=== PATIENT | male | born 1990 | race Caucasian/White ===

== ENCOUNTER 2024-12-26 20:42 | Emergency (ER) | payer OTHER, SELFPAY ==
--- NOTE | ~2024-12-26 | XR_ITS ---
EXAMINATION: XR chest 2V DATE: 12/26/2024 21:15 INDICATION: Left-sided chest pain and shortness of breath TECHNIQUE: PA and lateral views of the chest were obtained. COMPARISON: Chest radiograph dated 08/04/2011 FINDINGS: The lungs are clear with no focal airspace opacities, pulmonary edema, pleural effusion or pneumothorax. The cardiomediastinal silhouette is normal. Mild thoracic spondylosis. IMPRESSION: 1. No acute cardiopulmonary disease. Reviewed, dictated and finalized at location A.
--- NOTE | 2024-12-26 20:48 | ECG_ITS ---
Test Date: 2024-12-26 21:05:27 Measurements Intervals [place] Rate: 95 P: 66 AK: 162 QRS: 73 QRSD: 122 T: 67 QT: 359 QTc: 451 Interpretive Statements SINUS RHYTHM BORDERLINE ST ABNORMALITY- INFERIOR LEADS BORDERLINE ECG No previous ECG available for comparison Electronically Signed On 12-27-2024 06:10:53 CDT by Behzad Bradley D.O.
[2024-12-26 20:49] VITALS: BP 149/73; PULSE 106; RESP 16; TEMP 36.6; O2SAT 100
[2024-12-26 21:06] LABS: Hematocrit 39.9 % (42.0-52.0); Hemoglobin 13.7 g/dL (14.0-18.0); Immature Granulocyte Percent A 0.2 % (0-0.5); Lymphocytes Absolute Auto 3.20 K/mm3 (0.9-3.2); Mean Corpuscular HGB Conc 34.3 g/dl (32-36); Mean Corpuscular Hemoglobin 28.5 pg (26-34); Mean Corpuscular Volume 83.0 fl (80-100); Nucleated Red Blood Cells Absolute Auto 0.000 K/mm3 (0.0-0.012); Nucleated Red Blood Cells Perc 0.0 % (0.0-0.2); Platelet Count Result 210 k/mm3 (150-375); Red Blood Count 4.81 M/mm3 (4.6-6.20); White Blood Count 8.1 K/mm3 (4.5-10.0)
[2024-12-26 21:24] LABS: Alanine Aminotransferase 20 U/L (6-50); Albumin Level 5.0 g/dL (3.5-5.1); Alkaline Phosphatase 79 U/L (38-126); Anion Gap 15 mmol/L (4-12); Aspartate Amino Transferase 31 U/L (17-59); Bilirubin,Total 0.4 mg/dL (0.2-1.3); Blood Urea Nitrogen 17 mg/dL (9-20); Calcium 9.4 mg/dL (8.4-10.2); Carbon Dioxide 21 mmol/L (22-30); Chloride 103 mmol/L (98-107); Estimated CRCL calculation 119 ml/min; Estimated Glomerular Filt Rate > 60; Glucose 130 mg/dL (65-110); Lipase 75 U/L (23-300); Potassium 3.1 mmol/L (3.4-5.0); Sodium 139 mmol/L (137-145); Total Protein 8.7 g/dL (6.3-8.2)
[2024-12-26 21:28] LABS: INR 0.9; Prothrombin Time 12.7 Seconds (11.1-14.7)
[2024-12-26 21:29] LABS: Partial Thromboplastin Time 30.9 Seconds (22.3-36.8)
[2024-12-26 21:36] LABS: Troponin I < 0.012 ng/mL (0.000-0.034)
--- NOTE | 2024-12-26 23:55 | PC.NURSE ---
pt called for ed room 10 placement and received no answer.
--- OUTSIDE RECORDS SUMMARY | 2024-12-27 01:09 | XMS_ITS | Data Portability ---
Author Organization [facility] Address [address] [place] [address] Care Team Providers Care Dowel Pointer Name Role Phone DARRION JONES Primary Care Provider BREANNA OSULLIVAN Payroll Accountant Assessment No assessment recorded. Plan of Treatment Reminders Order Date Submit Date Provider Last Modified By Organization Details Last Modified Time Details Appointments ANY 15 2025 09:00A M GARCÍA Early Not available Not available Not available Lab magnesiu m, serum or plasma 2024 025 [facility], [address], [place], [address], 12/20/2024 04:24:10 TSH + free T4, serum 2024 025 [employer], [address], [place], [address], 12/20/2024 04:24:09 lipid panel, serum 2024 025 [employer], [address], [place], [address], 12/20/2024 04:24:09 CBC w/ auto diff 2024 025 [employer], [address], [place], [address], 12/20/2024 04:24:11 CMP, serum or plasma 2024 025 [facility], [address], [address], [place], [address], 12/20/2024 04:24:10 vitamin B12 + folate, serum or blood 2024 025 [facility], [address], [address], [place], [address], 12/20/2024 04:24:12 HbA1c (hemoglo bin A1c), blood 2024 025 [facility], [address], [address], [place], [address], 12/20/2024 04:24:12 TSH + free T4, serum 2023 024 [facility], [address], [place], [address], 09/23/2023 10:41:47 lipid panel, serum 2023 024 [facility], [address], [address], [place], [address], 09/23/2023 10:40:16 CBC w/ auto diff 2023 024 [facility], [address], [place], [address], 09/23/2023 10:41:55 CMP, serum or plasma 2023 024 [facility], [address], [place], [address], 11/10/2023 11:47:46 vitamin B12 + folate, serum or blood 2023 024 [facility], [address], [place], [address], 09/23/2023 10:42:09 HbA1c (hemoglo bin A1c), blood 2023 024 [email or web address], [address], [address], [place], [address], 09/23/2023 10:41:36 Referral None recorded . Procedures None recorded . Surgeries None recorded . Imaging None recorded . Medication Orders None recorded . Patient TargetsNo targets recorded. Patient InstructionsNo instructions recorded. Reason for Referral None Reported. Results Created Date Observation Date Name Description Value Unit Range Abnormal Flag Note LastModifiedBy Organization Detail LastModifiedTime 12/20/1912/20/2024 LIPID PANEL WITH RATIO S cholesterol, total 187 mg/dL <200 normal Not Available [facility] [address] [address] [place], [address], 12/20/2024 04:24:09 12/20/1912/20/2024 LIPID PANEL WITH RATIO S HDL cholesterol 49 mg/dL > or = 40 normal Not Available [facility] [address], [address], 12/20/2024 04:24:09 12/20/1912/20/2024 LIPID PANEL WITH RATIO S triglyceride s 109 mg/dL <150 normal Not Available [facility] [address], [address], 12/20/2024 04:24:09 12/20/1912/20/2024 LIPID PANEL WITH RATIO S LDL-choleste rol 116 mg/dL _(annemarie c) high Refer ence range : <100 Shamar able range <100 mg/dL for prima ry preve ntion ; <70 mg/dL for patie nts with CHD or diabe tic patie nts with > or = 2 CHD risk facto rs. LDL-C is now calcu lated using the Yue n-Hop kins calcu amos n, which is a valid ated novel rodrigoo palomo seymour r accur acy than the Fried sigrid equat ion in the estim ation of LDL-C . Yue LUND et al. RIAN. 2013; 310(1 9): 2061- 2068 (http ://ed ucati on.Melani grahamRVE.SOL - [employer]. com/f aq/FA Q164) Not Available [address], [address], 12/20/2024 04:24:09 12/20/1912/20/2024 LIPID PANEL WITH RATIO S chol/HDLC ratio 3.8 (calc ) <5.0 normal Not Available [address], [address], 12/20/2024 04:24:12/20/1912/20/2024 LIPID PANEL WITH RATIO S LDL/HDL ratio 2.4 (calc ) Below [place] ge Risk: <2.28 [place] ge Risk: 2.29- 4.90 Moder ate Risk: 4.91- 7.12 High Risk: >7.13 Not Available [address], [address], 12/20/2024 04:24:12/20/1912/20/2024 LIPID PANEL WITH RATIO S non HDL cholesterol 138 mg/dL _(annemarie c) <130 high For patie nts with diabe rita plus 1 major ASCVD risk facto r, treat ing to a non-H DL-C goal of <100 mg/dL (LDL- C of <70 mg/dL ) is srini machucao n. Not Available [address], [address], 12/20/2024 04:24:12/20/1912/20/2024 TSH+F REE T4 TSH 2.90 mIU/L 0.40-4 .50 normal Not Available [address], [address], 12/20/2024 04:24:09 09/29/20 25 12/20/2024 TSH+F REE T4 T4, free 1.3 NG/dL 0.8-1. 8 normal Not Available [address], [address], 12/20/2024 04:24:09 12/20/19 25 12/20/2024 MAGNE SIUM magnesium 2.1 mg/dL 1.5-2. 5 normal Not Available [address], [address], 12/20/2024 04:24:10 12/20/19 25 12/20/2024 COMPR EHENS MADELAINE METAB OLIC PANEL glucose 86 mg/dL 65-99 normal Fasti ng refer ence inter elinor Not Available [address], [address], 12/20/2024 04:24:10 12/20/19 25 12/20/2024 COMPR EHENS MADELAINE METAB OLIC PANEL urea nitrogen (BUN) 25 mg/dL 7-25 normal Not Available [address], [address], 12/20/2024 04:24:10 12/20/19 25 12/20/2024 COMPR EHENS MADELAINE METAB OLIC PANEL creatinine 0.94 mg/dL 0.60-1 .26 normal Not Available [address], [address], 12/20/2024 04:24:10 12/20/19 25 12/20/2024 COMPR EHENS MADELAINE METAB OLIC PANEL eGFR 110 mL/mi n/1.7 3m2 > or = 60 normal Not Available [address], [address], 12/20/2024 04:24:10 12/20/19 25 12/20/2024 COMPR EHENS MADELAINE METAB OLIC PANEL BUN/creatini ne ratio SEE NOTE: (calc ) 6-22 Not Repor patel: BUN and Creat inine are withi n refer ence range . Not Available [facility] [address] [place], [address], 12/20/2024 04:24:10 12/20/1912/20/2024 COMPR EHENS MADELAINE METAB OLIC PANEL sodium 141 mmol/ L 135-14 6 normal Not Available [address], [address], 12/20/2024 04:24:10 12/20/1912/20/2024 COMPR EHENS MADELAINE METAB OLIC PANEL potassium 4.0 mmol/ L 3.5-5. 3 normal Not Available [address], [address], 12/20/2024 04:24:10 12/20/1912/20/2024 COMPR EHENS MADELAINE METAB OLIC PANEL chloride 103 mmol/ L 98-110 normal Not Available [address], [address], 12/20/2024 04:24:10 12/20/1912/20/2024 COMPR EHENS MADELAINE METAB OLIC PANEL carbon dioxide 29 mmol/ L 20-32 normal Not Available [address], [address], 12/20/2024 04:24:10 12/20/1912/20/2024 COMPR EHENS MADELAINE METAB OLIC PANEL calcium 9.7 mg/dL 8.6-10 .3 normal Not Available [address] [address] [place], [address], 12/20/2024 04:24:10 12/20/1912/20/2024 COMPR EHENS MADELAINE METAB OLIC PANEL protein, total 7.4 g/dL 6.1-8. 1 normal Not Available [address], [address], 12/20/2024 04:24:10 12/20/1915 1212/20/2024 COMPR EHENS MADELAINE METAB OLIC PANEL albumin 4.7 g/dL 3.6-5. 1 normal Not Available [address], [address], 12/20/2024 04:24:10 12/20/19 25 12/20/2024 COMPR EHENS MADELAINE METAB OLIC PANEL globulin 2.7 g/dL_ (calc ) 1.9-3. 7 normal Not Available [address], [address], 12/20/2024 04:24:10 12/20/1912/20/2024 COMPR EHENS MADELAINE METAB OLIC PANEL albumin/glob ulin ratio 1.7 (calc ) 1.0-2. 5 normal Not Available [address], [address], 12/20/2024 04:24:10 12/20/19 25 12/20/2024 COMPR EHENS MADELAINE METAB OLIC PANEL bilirubin, total 0.4 mg/dL 0.2-1. 2 normal Not Available [address], [address], 12/20/2024 04:24:10 12/20/19 25 12/20/2024 COMPR EHENS MADELAINE METAB OLIC PANEL alkaline phosphatase 67 U/L 36-130 normal Not Available [address], [address], 12/20/2024 04:24:10 12/20/19 25 12/20/2024 COMPR EHENS MADELAINE METAB OLIC PANEL AST 15 U/L 10-40 normal Not Available [address], [address], 12/20/2024 04:24:10 12/20/19 25 12/20/2024 COMPR EHENS MADELAINE METAB OLIC PANEL ALT 13 U/L 9-46 normal Not Available [address], [address], 12/20/2024 04:24:10 12/20/1912/20/2024 CBC (INCL UDES DIFF/ PLT) white blood cell count 6.3 thous and/u L 3.8-10 .8 normal Not Available [address], [address], 12/20/2024 04:24:11 12/20/1912/20/2024 CBC (INCL UDES DIFF/ PLT) red blood cell count 4.75 keysha on/uL 4.20-5 .80 normal Not Available [address], [address], 12/20/2024 04:24:11 12/20/1912/20/2024 CBC (INCL UDES DIFF/ PLT) hemoglobin 13.7 g/dL 13.2-1 7.1 normal Not Available [address], [address], 12/20/2024 04:24:11 12/20/1912/20/2024 CBC (INCL UDES DIFF/ PLT) hematocrit 42.0 % 38.5-5 0.0 normal Not Available [address], [address], 12/20/2024 04:24:11 12/20/1912/20/2024 CBC (INCL UDES DIFF/ PLT) MCV 88.4 fL 80.0-1 00.0 normal Not Available [address], [address], 12/20/2024 04:24:11 12/20/1912/20/2024 CBC (INCL UDES DIFF/ PLT) MCH 28.8 pg 27.0-3 3.0 normal Not Available [facility] [address], [address], 12/20/2024 04:24:11 12/20/1912/20/2024 CBC (INCL UDES DIFF/ PLT) MCHC 32.6 g/dL 32.0-3 6.0 normal For adult s, a sligh t decre ase in the calcu lated MCHC value (in the range of 30 to 32 g/dL) is most likel y not clini sathish signi janey t; rosibel er, it shoul d be inter prete d with cauti on in corre latio n with other red cell gerard eters and the patie nt's clini annemarie condi tion. Not Available [address], [address], 12/20/2024 04:24:11 12/20/1912/20/2024 CBC (INCL UDES DIFF/ PLT) RDW 12.9 % 11.0-1 5.0 normal Not Available [address], [address], 12/20/2024 04:24:11 12/20/1912/20/2024 CBC (INCL UDES DIFF/ PLT) platelet count 202 thous and/u L 140-40 0 normal Not Available [address], [address], 12/20/2024 04:24:11 12/20/1912/20/2024 CBC (INCL UDES DIFF/ PLT) MPV 10.5 fL 7.5-12 .5 normal Not Available [address], [address], 12/20/2024 04:24:11 12/20/1912/20/2024 CBC (INCL UDES DIFF/ PLT) absolute neutrophils 2690 cells /uL 1500-7 800 normal Not Available [address], [address], 12/20/2024 04:24:11 12/20/1912/20/2024 CBC (INCL UDES DIFF/ PLT) absolute lymphocytes 2942 cells /uL 850-39 00 normal Not Available [address], [address], 12/20/2024 04:24:11 12/20/1912/20/2024 CBC (INCL UDES DIFF/ PLT) absolute monocytes 491 cells /uL 200-95 0 normal Not Available [address], [address], 12/20/2024 04:24:11 12/20/1912/20/2024 CBC (INCL UDES DIFF/ PLT) absolute eosinophils 139 cells /uL 15-500 normal Not Available [address], [address], 12/20/2024 04:24:11 12/20/1912/20/2024 CBC (INCL UDES DIFF/ PLT) absolute basophils 38 cells /uL 0-200 normal Not Available [address], [address], 12/20/2024 04:24:11 12/20/1912/20/2024 CBC (INCL UDES DIFF/ PLT) neutrophils 42.7 % normal Not Available [address], [address], 12/20/2024 04:24:11 12/20/1912/20/2024 CBC (INCL UDES DIFF/ PLT) lymphocytes 46.7 % normal Not Available [facility] [address], [address], 12/20/2024 04:24:11 12/20/1912/20/2024 CBC (INCL UDES DIFF/ PLT) monocytes 7.8 % normal Not Available [facility] [address], [address], 12/20/2024 04:24:11 12/20/1912/20/2024 CBC (INCL UDES DIFF/ PLT) eosinophils 2.2 % normal Not Available [facility] [address], [address], 12/20/2024 04:24:11 12/20/19 25 12/20/2024 CBC (INCL UDES DIFF/ PLT) basophils 0.6 % normal Not Available [facility] [address], [address], 12/20/2024 04:24:11 12/20/1912/20/2024 VITAM IN B12/F OLATE , SERUM PANEL vitamin B12 329 pg/mL 200-11 00 normal Pleas e Note: Altho ugh the refer ence range for vitam in B12 is 200-1 100 pg/mL , it has been repor patel that betwe en 5 and 10% of patie nts with value s betwe en 200 and 400 pg/mL may exper ience neuro psych iatri c and hemat ologi c abnor malit ies due to occul t B12 defic iency ; less than 1% of patie nts with value s above 400 pg/mL will have sympt oms. Not Available [address], [address], 12/20/2024 04:24:12 12/20/1912/20/2024 VITAM IN B12/F OLATE , SERUM PANEL folate, serum 7.3 NG/mL normal Refer ence Range Low: <3.4 Borde rline : 3.4-5 .4 Mariana l: >5.4 Not Available [facility] [address] [place], [address], 12/20/2024 04:24:12 12/20/1912/20/2024 HEMOG LOBIN A1C hemoglobin A1C 5.5 %_of_ total _HGB <5.7 normal For the purpo se of scree demetris for the prese nce of diabe rita: <5.7% Consi stent with the absen ce of diabe rita 5.7-6 .4% Consi stent with incre ased risk for diabe rita (pred iabet es) > or =6.5% Consi stent with diabe rita This assay resul t is consi stent with a decre ased risk of diabe rita. Curre ntly, no conse nsus exist s shane verdugo use of hemog lobin A1c for diagn osis of diabe rita in child osman. Accor ding to Ameri can Diabe rita Assoc iatio n (ADA) guide lines , hemog lobin A1c <7.0% repre sents optim al contr ol in non-p regna nt diabe tic patie nts. Diffe rent metri cs may apply to speci fic patie nt popul ation s. Stand ards of Medic al Care in Diabe rita(A DA). Not Available [facility] [address] [place], [address], 12/20/2024 04:24:12 Result Notes None recorded. 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 Medical Equipment None Reported. Allergies No known drug allergies Medications Name Sig Start Date Stop Date Status Note LastModified by Organization Details LastModified Time azithromycin 250 mg tablet TK 2 TS PO ON DAY 1, THEN TK 1 T PO D FOR 4 DAYS 09/02 completed Not Available Not Available Not Available ciprofloxacin 500 mg tablet TAKE 1 TABLET BY MOUTH EVERY 12 HOURS FOR 10 DAYS 08/09 completed Not Available Not Available Not Available flaxseed oil 1,000 mg capsule Take by oral route. active Not Available Not Available No t Available Vitals Date Recorded Body weight Body mass index (BMI) Body height Heart rate Oxygen saturation Oxygen saturation in Arterial blood by Pulse oximetry Systolic And Diastolic Provider Name and Address Organization Details Last Updated DateTime 4 [address].0 2 g 24.6 kg/m2 187.96 cm 70 /min 99 % 99 % 130/80 mm[Hg] Sadie Andrade MA [facility] 4 17:39:31 Date Recorded Respiratory rate Systolic And Diastolic Provider Name and Address Organization Details Last Updated DateTime 09/02/2024 16 /min 100/70 mm[Hg] GARCÍA Early Attn: Accounting,[address] [address], [place], [address], [facility] 09/02/2024 15:02:37 Date Recorded Body height Body mass index (BMI) Body weight Oxygen saturation Oxygen saturation in Arterial blood by Pulse oximetry Heart rate Systolic And Diastolic Provider Name and Address Organization Details Last Updated DateTime 5 187.96 cm 23 kg/m2 02823.0 3 g 99 % 99 % 61 /min 118/82 mm[Hg] Karl Zamorano MA [facility] 5 14:36:38 Social History Question Answer Notes LastModified by Organizat ion Details LastModified Time Tobacco Smoking Status Former Smoker Sadie Andrade MA null, [facility] 08/10/2023 17:35:35 Do You Have An Advance Directive? Yes Information not available 08/10/2023 How Many Years Have You Consumed Alcohol? 9 Information not available 08/10/2023 Are You Blind Or Do You Have Difficulty Seeing? Yes Glasses Information not available 08/10/2023 What Is Your Level Of Caffeine Consumption? Moderate Information not available 08/10/2023 In The 14 Days Before Symptom Onset, Have You Had Close Contact With A Laboratory-confi rmed COVID-19 While That Case Was Ill? No Information not available 08/07/2023 In The 14 Days Before Symptom Onset, Have You Had Close Contact With A Person Who Is Under Investigation For COVID-19 While That Person Was Ill? No Information not available 08/07/2023 Have You Been To An Area Known To Be High Risk For COVID-19? No Information not available 08/07/2023 Are You Deaf Or Do You Have Serious Difficulty Hearing? Yes Difficulty Hearing Information not available 08/10/2023 What Type Of Diet Are You Following? REGULAR Information not available 08/10/2023 Are There Any Guns Present In Your Home? Yes Information not available 08/10/2023 What Was The Date Of Your Most Recent Tobacco Screening? 09/02/2024 Information not available 09/02/2024 What Is Your Current Pack Years? 10packyears Information not available 08/10/2023 What Is Your Relationship Status? Information not available 08/10/2023 Do You Use Your Seat Belt Or Car Seat Routinely? Yes Information not available 08/10/2023 Do You Have Smoke And Carbon Monoxide Detectors In Your Home? Yes Information not available 08/07/2023 How Much Tobacco Do You Smoke? No Information not available 08/10/2023 Do You Use Sunscreen Routinely? Yes Information not available 08/10/2023 Has Tobacco Cessation Counseling Been Provided? No Information not available 08/10/2023 On What Date Was Tobacco Cessation Counseling Provided? 09/02/2024 Information not available 09/02/2024 Sex: Male Functional Status Question Answer Note LastModified by Organizat ion Details LastModified Time Do you use any illicit or recreational drugs? No Information not available 08/10/2023 Do you or have you ever used any other forms of tobacco or nicotine? No Information not available 08/10/2023 What is your level of alcohol consumption? Occasional Information not available 08/10/2023 Are you currently employed? Yes Information not available 08/10/2023 Are you able to care for yourself independently? 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 Occasional Information not available 08/10/2023 Mental Status Question Answer Note LastModified by Organization D etails LastModified Time Do you feel stressed (tense, restless, nervous, or anxious, or unable to sleep at night)? [id number] [facility] Information not available 08/10/2023 Family History Relationship Description Onset Age of this Age Resolved Age Notes LastModified by Organization Details LastModified Time Father No current problems or disability tcarterma Not available 09/02 14:35:01 Mother No current problems or disability tcarterma Not available 09/02 14:35:01 Medical History Condition Response Coronary Artery Disease N Other N Atrial Fibrillation N High Blood Pressure N Thyroid Problems N Kidney or Bladder Problems N Depression N COPD N Blood Clots N GI Problems N Skin Problems N Anemia N Heart Attack (NV) N Diabetes N Anxiety Disorder N Muscle, Joint, or Bone Problems N Seizures/Epilepsy N Acid Reflux (GERD) N Cancer N Stroke N Allergies N Asthma N High Cholesterol N Hepatitis N Liver Disease N Headaches N Osteoporosis N Heart Failure N Immunizations Vaccine Type Date Status Note Provider Nam e and Address Organization Details Recorded Time Influenza, split virus, quadrivalent, PF 12/18/2017 completed Not Available [facility] 5 14:27:54 Tdap 04/06/2018 completed Not Available [facility] 09/02/2024 14:27:54 COVID-19, mRNA, LNP-S, PF, 100 mcg/0.5mL dose or 50 mcg/0.25mL dose 05/03/2020 completed Not Available [facility] 5 14:27:54 COVID-19, mRNA, LNP-S, PF, 100 mcg/0.5mL dose or 50 mcg/0.25mL dose 06/01/2020 completed Not Available [facility] 5 14:27:54 Influenza, split virus, quadrivalent, PF 12/09/2020 completed Not Available [facility] 5 14:27:54 Influenza, split virus, quadrivalent, PF 12/10/2021 completed Not Available [facility] 14:27:54 Influenza, MDCK, quadrivalent, PF 12/03/2022 completed Not Available [facility] 14:27:54 Past Encounters Encounter ID Performer Location Encounter Start Date Encounter Closed Date Diagnosis/Indication Diagnosis SNOMED-CT Code Diagnosis ICD10 Code Diagnosis IMO Codes Diagnosis Note [id number] Danish Thurman MD [facility] [place] [address] [place] [address] 08/10/2023 17:20:44 08/10/2023 18:03:39 Adult health examination 868755148 Z00.00 annual wellness completed. 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 plans for future surgery procedure. Cholesterol screening 27 2519719 Z13.220 fasting lipids due. Diabetes m ellitus screening 862596909 Z13.1 screening a1c ordered. Thyroid di sorder screening 652824039 Z13.29 screening thyroid panel ordered. Long-term drug therapy 654546606 Z79.899 cmp, cbc and b12, folate labs are due [id number] Danish Thurman MD [facility] [place] [address] [place] [address] 09/02/2024 14:26:54 09/05/2024 12:13:32 Body mass index 20-24 - normal 054194251 Z68.23 95833836 23.0 Adult [facility] th examination 042689363 Z00.00 annual wellness completed. Karla-Park inson-White pattern 01005689 I45.6 new dx and following with cardiology now. plans for future surgery procedure. Cholesterol screening 27 7866027 Z13.220 fasting lipids due. Diabetes m ellitus screening 072656640 Z13.1 screening a1c ordered. Thyroid di sorder screening 801362344 Z13.29 screening thyroid panel ordered. Long-term drug therapy 741313250 Z79.899 cmp, cbc and b12, folate labs are due Health Concerns Section Related Observation LastModified by Organization Detai ls LastModified Time None Recorded Concern Status LastModified by Organization Details LastModified Time None Recorded Advance Directives Directive Y: Payers Insurance Date Sequence Insurance Name Policy Number Policy Torres Covered Member ID Torres Member ID Guarantor Name 09/19/2024 1 [facility] [id number] Mani Shankar [id number] Mani Shankar Notes Date Note Type Note Provider Name and Address Organization Details Recorded Time 08/10/2023 text/html pt here for wellness exam. Since last appt with provider he has been dx with Karla-parkinson white pattern. he is seeing cardiology now. there is discussion about loop recorder being placed or just proceed with surgery plans. the patient prefers to just plan for surgery. GARCÍA Early Attn: Accounting,[address] , [place], [address], [facility] 08/23/2023 22:15:40 09/02/2024 text/html pt here for wellness exam. Since last appt with provider he has been dx with Karla-parkinson white pattern. he is seeing cardiology now. there is discussion about loop recorder being placed or just proceed with surgery plans. the patient prefers to avoid surgery at this time. GARCÍA Early Attn: Accounting,[address], [place], [address], [facility] 2024 15:23:42
--- OUTSIDE RECORDS SUMMARY | 2024-12-27 01:09 | XMS_ITS | Clinical Summary ---
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 Medical History Medical History Date Comments Arrhythmia Family History Medical History Relation Name Comments Heart disease Father Rashes / Skin problems Mother Layne Cancer Mother's Sister Amena Heart attack Paternal Grandfather Samir Relation Name Status Comments Father Mother Layne Mother's Sister Amena Paternal Grandfather Samir Social History Tobacco Use Types Packs/Day Years Used Date Smoking Tobacco: Never Smokeless Tobacco: Never Tobacco Cessation:Counseling Given: Not Answered Sex and Gender Information Value Date Recorded Sex Assigned at Not on file 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 Gender Identity Male 03/05/2023 1:32 PM COOK SUPERVISOR Sexual Orientation Straight 03/05/2023 1: 32 PM COOK SUPERVISOR Obstetrics History Last Filed Vital Signs Vital Sign Reading Time Taken Comments Blood Pressure 111/76 05/06/2024 3:12 PM COOK SUPERVISOR Pulse 76 05/06/2024 3:12 PM COOK SUPERVISOR Temperature - - Respiratory Rate 14 06/23/2023 9:30 AM CDT Oxygen Saturation 99% 05/06/2024 3:12 PM COOK SUPERVISOR Inhaled Oxygen Concentration - - Weight 84.4 kg (186 lb) 05/06/2024 3:12 PM COOK SUPERVISOR Height 190.5 cm (6' 3) 05/06/2024 3:12 PM COOK SUPERVISOR Body Mass Index 23.25 05/06/2024 3:12 PM COOK SUPERVISOR Plan of Treatment Health Maintenance Due Date Last Done Comments Depression Screening 1992 Hepatitis C Screening 1992 Varicella Vaccines (1 of 2 - 13+ 2-dose series) 2005 Hepatitis B Screening 2010 Regular Well Visit/Exam 18-64 2010 HPV Vaccines (1 - 3-dose SCDM series) 09/19/2019 Covid-19 Vaccine (3 - 2024- season) 2024 06/01/2020, 05/03/2020 Influenza Vaccine (#1) 2024 , 12/03/2022, 12/10/2021, Additional history exists DTaP/Tdap/Td Vaccine (2 - Td or Tdap) 04/06/2028 04/06/2018 Pneumococcal vaccine <65 Aged Out No longer eligible based on patient's age to complete this topic Insurance [facility] Address: [facility] [address] [place] [address] [facility] Address: [place] [address] Care Teams Day Habilitation Specialist Relationship Specialty Start Date End Date Arianna Tavarez PA PCP - General Physician Sulfur Chloride Operator 02/25/23
--- OUTSIDE RECORDS SUMMARY | 2024-12-27 01:09 | XMS_ITS | Clinical Summary ---
Author Organization [facility] Address [address] [place] [address] Care Team Providers Care Coal Unloader Name Role Phone Arianna Rivero Primary Care Pr ovider Source Comments [facility],non-owned Affiliates and Associated Physician Practices is amultiple site organization consisting of ambulatory clinics and hospital sitesin [place], [place], [place] and [place]. This disclosure is being madepursuant to the Care Everywhere program and may not contain all information available regarding this patient. 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 Gender Identity Not on file Sexual Orientation Not on file Plan of Treatment Health Maintenance Due Date Last Done Comments HIV SCREENING 09/19/2007 HEPATITIS C SCREENING 09/14/2010 HEPATITIS B VACCINE (1 of 3 - 19+ 3-dose series) 09/19/2011 HPV VACCINE (1 - 3-dose SCDM series) 09/19/2019 DEPRESSION SCREENING 03/23/2024 COVID-19 VACCINE ( - 2023-2 5 season) 2024 INFLUENZA VACCINE (#1) 2024 DTAP/TDAP/TD VACCINES (2 - T d or Tdap) 04/06/2028 04/06/2018 ZOSTER VACCINE (1 of 2) 2042 HIB VACCINE Aged Out No longer eligi ble based on patient's age to complete this topic MENINGOCOCCAL (Group B) VACC INE SHARED DECISION-MAKING Aged Out No longer eligibl e based on patient's age to complete this topic MENINGOCOCCAL GROUPS A/C/Y/W VACCINE Aged Out No longer eligible b ased on patient's age to complete this topic PNEUMOCOCCAL VACCINE Aged Out No long er eligible based on patient's age to complete this topic Insurance [facility] Care Teams Coal Unloader Relationship Specialty Start Date End Date Arianna Rivero PA [address] [place] [address] [place] [address] PCP - General Physician Foundry Supervisor 04/06/18
--- OUTSIDE RECORDS SUMMARY | 2024-12-27 01:09 | XMS_ITS | Data Portability ---
Author Organization [place] [facility] [employer], Main Office Address [address] [place] [address] Assessment No assessment recorded. Plan of Treatment Reminders Order Date Submit Date Provider Last Modified By Organization Details Last Modified Time Details Appointments None record ed. Lab None record ed. Referral None record ed. Procedures None record ed. Surgeries None record ed. Imaging None record ed. Medication Orders None record ed. Patient TargetsNo targets recorded. Patient InstructionsNo instructions recorded. Reason for Referral None Reported. Results Created Date Observation Date Name Description Value Unit Range Abnormal Flag Note LastModifiedBy Organization Detail LastModifiedTime 04/13/19 22 04/16/2021 URINA LYSIS REFLE X color dark yellow yellow normal Not Available [facility] [address], [address], 04/16/2021 09:28:23 04/13/19 22 04/16/2021 URINA LYSIS REFLE X appearance cloudy clear abnormal Not Available [facility] [address], [address], 04/16/2021 09:28:23 04/13/1904/16/2021 URINA LYSIS REFLE X specific gravity 1.025 1.001- 1.035 normal Not Available [facility] [address], [address], 04/16/2021 09:28:23 04/13/19 22 04/16/2021 URINA LYSIS REFLE X pH 5.5 5.0-8. 0 normal Not Available [facility] [id number] [place] [address], [address], 04/16/2021 09:28:23 04/13/19 22 04/16/2021 URINA LYSIS REFLE X glucose negati ve negati ve normal Not Available [address], [address], 04/16/2021 09:28:23 04/13/19 22 04/16/2021 URINA LYSIS REFLE X bilirubin negati ve negati ve normal Not Available [facility] [address] [place], [address], 04/16/2021 09:28:23 04/13/19 22 04/16/2021 URINA LYSIS REFLE X ketones trace negati ve abnormal Not Available [facility] [address], [address], 04/16/2021 09:28:23 04/13/19 22 04/16/2021 URINA LYSIS REFLE X occult blood negati ve negati ve normal Not Available [address] [place], [address], 04/16/2021 09:28:23 04/13/19 22 04/16/2021 URINA LYSIS REFLE X protein negati ve negati ve normal Not Available [facility] [address] [place], [address], 04/16/2021 09:28:23 04/13/19 22 04/16/2021 URINA LYSIS REFLE X nitrite negati ve negati ve normal Not Available [facility] [address] [place], [address], 04/16/2021 09:28:23 04/13/19 22 04/16/2021 URINA LYSIS REFLE X leukocyte esterase negati ve negati ve normal Not Available [facility] [address] [address] [place], [address], 04/16/2021 09:28:23 04/13/19 22 04/16/2021 CBC (INCL UDES DIFF/ PLT) white blood cell count tnp TEST NOT PERFO RMED The speci men excee ds stabi lity for the test reque sted. Not Available [facility] [address] [place], [address], 04/16/2021 09:28:22 04/13/19 22 04/16/2021 HEMOG LOBIN A1C hemoglobin A1C 5.3 %_of_ total _HGB <5.7 normal For the [...] Care in Diabe rita(A DA). Not Available [facility] [address] [place], [address], 04/16/2021 09:28:21 04/13/19 22 04/16/2021 COMPR EHENS MADELAINE METAB OLIC PANEL glucose 85 mg/dL 65-99 normal Fasti ng refer ence inter elinor Not Available [facility] [address] [place], [address], 04/16/2021 09:28:20 04/13/19 22 04/16/2021 COMPR EHENS MADELAINE METAB OLIC PANEL urea nitrogen (BUN) 17 mg/dL 7-25 normal Not Available [facility] [address] [address], [place], [address], 04/16/2021 09:28:20 04/13/19 22 04/16/2021 COMPR EHENS MADELAINE METAB OLIC PANEL creatinine 0.96 mg/dL 0.60-1 .35 normal Not Available [address], [address], 04/16/2021 09:28:20 04/13/19 22 04/16/2021 COMPR EHENS MADELAINE METAB OLIC PANEL eGFR non-afr. [place] 107 mL/mi n/1.7 3m2 > or = 60 normal Not Available [address], [address], 04/16/2021 09:28:20 04/13/19 22 04/16/2021 COMPR EHENS MADELAINE METAB OLIC PANEL eGFR 124 mL/mi n/1.7 3m2 > or = 60 normal Not Available [address], [address], 04/16/2021 09:28:20 04/13/19 22 04/16/2021 COMPR EHENS MADELAINE METAB OLIC PANEL BUN/creatini ne ratio not applic able (calc ) 6-22 Not Available [address], [address], 04/16/2021 09:28:20 04/13/19 22 04/16/2021 COMPR EHENS MADELAINE METAB OLIC PANEL sodium 141 mmol/ L 135-14 6 normal Not Available [address], [address], 04/16/2021 09:28:20 04/13/19 22 04/16/2021 COMPR EHENS MADELAINE METAB OLIC PANEL potassium 4.3 mmol/ L 3.5-5. 3 normal Not Available [address], [address], 04/16/2021 09:28:20 04/13/19 22 04/16/2021 COMPR EHENS MADELAINE METAB OLIC PANEL chloride 103 mmol/ L 98-110 normal Not Available [address], [address], 04/16/2021 09:28:20 04/13/19 22 04/16/2021 COMPR EHENS MADELAINE METAB OLIC PANEL carbon dioxide 32 mmol/ L 20-32 normal Not Available [address], [address], 04/16/2021 09:28:20 04/13/19 22 04/16/2021 COMPR EHENS MADELAINE METAB OLIC PANEL calcium 10.1 mg/dL 8.6-10 .3 normal Not Available [address], [address], 04/16/2021 09:28:20 04/13/19 22 04/16/2021 COMPR EHENS MADELAINE METAB OLIC PANEL protein, total 7.8 g/dL 6.1-8. 1 normal Not Available [address], [address], 04/16/2021 09:28:20 04/13/19 22 04/16/2021 COMPR EHENS MADELAINE METAB OLIC PANEL albumin 5.0 g/dL 3.6-5. 1 normal Not Available [address], [address], 04/16/2021 09:28:20 04/13/19 22 04/16/2021 COMPR EHENS MADELAINE METAB OLIC PANEL globulin 2.8 g/dL_ (calc ) 1.9-3. 7 normal Not Available [address], [address], 04/16/2021 09:28:20 04/13/19 22 04/16/2021 COMPR EHENS MADELAINE METAB OLIC PANEL albumin/glob ulin ratio 1.8 (calc ) 1.0-2. 5 normal Not Available [address], [address], 04/16/2021 09:28:20 04/13/19 22 04/16/2021 COMPR EHENS MADELAINE METAB OLIC PANEL bilirubin, total 0.7 mg/dL 0.2-1. 2 normal Not Available [address], [address], 04/16/2021 09:28:20 04/13/19 22 04/16/2021 COMPR EHENS MADELAINE METAB OLIC PANEL alkaline phosphatase 62 U/L 36-130 normal Not Available [facility] [employer] [address], [address], 04/16/2021 09:28:20 04/13/19 22 04/16/2021 COMPR EHENS MADELAINE METAB OLIC PANEL AST 19 U/L 10-40 normal Not Available [address], [address], 04/16/2021 09:28:20 04/13/19 22 04/16/2021 COMPR EHENS MADELAINE METAB OLIC PANEL ALT 18 U/L 9-46 normal Not Available [address], [address], 04/16/2021 09:28:20 04/13/19 22 04/16/2021 LIPID PANEL WITH RATIO S cholesterol, total 175 mg/dL <200 normal Not Available [address], [address], 04/16/2021 09:28:20 04/13/19 22 04/16/2021 LIPID PANEL WITH RATIO S HDL cholesterol 41 mg/dL > or = 40 normal Not Available [address], [address], 04/16/2021 09:28:20 04/13/19 22 04/16/2021 LIPID PANEL WITH RATIO S triglyceride s 147 mg/dL <150 normal Not Available [address], [address], 04/16/2021 09:28:20 04/13/1904/16/2021 LIPID PANEL WITH RATIO S LDL-choleste rol 108 mg/dL _(annemarie c) high Refer ence range : <100 Shamar able range <100 mg/dL for prima ry preve ntion ; <70 mg/dL for patie nts with CHD or diabe tic patie nts with > or = 2 CHD risk facto rs. LDL-C is now calcu lated using the Yue n-Hop kins calcu amos n, which is a valid ated novel metho d provi ding lion r accur acy than the Fried sigrid equat ion in the estim ation of LDL-C . Yue garcia SS et al. RIAN. 2013; 310(1 9): 2061- 2068 (http ://ed ucati on.Qu estDi Knotice. com/f aq/FA Q164) Not Available [address], [address], 04/16/2021 09:28:20 04/13/1904/16/2021 LIPID PANEL WITH RATIO S chol/HDLC ratio 4.3 (calc ) <5.0 normal Not Available [address], [address], 04/16/2021 09:28:20 04/13/1904/16/2021 LIPID PANEL WITH RATIO S LDL/HDL ratio 2.6 (calc ) Below Mcdonough ge Risk: <2.28 Mcdonough ge Risk: 2.29- 4.90 Moder ate Risk: 4.91- 7.12 High Risk: >7.13 Not Available [address] [address] [place], [address], 04/16/2021 09:28:20 04/13/1904/16/2021 LIPID PANEL WITH RATIO S non HDL cholesterol 134 mg/dL _(annemarie c) <130 high For patie nts with diabe rita plus 1 major ASCVD risk facto r, treat ing to a non-H DL-C goal of <100 mg/dL (LDL- C of <70 mg/dL ) is srini grover optio n. Not Available [address] [place], [address], 04/16/2021 09:28:20 04/13/19 22 04/16/2021 TSH+F REE T4 TSH 1.15 mIU/L 0.40-4 .50 normal Not Available [facility] [address], [address], 04/16/2021 09:28:18 04/13/19 22 04/16/2021 TSH+F REE T4 T4, free 1.2 NG/dL 0.8-1. 8 normal Not Available [facility] [address] [address] [place], [address], 04/16/2021 09:28:18 07/27/19 23 07/27/2022 TSH+F REE T4 TSH 1.83 mIU/L 0.40-4 .50 normal Not Available [address] [address] [place], [address], 07/27/2022 18:03:16 07/27/19 23 07/27/2022 TSH+F REE T4 T4, free 1.1 NG/dL 0.8-1. 8 normal Not Available [facility] [address] [address] [place], [address], 07/27/2022 18:03:16 07/27/19 23 07/27/2022 LIPID PANEL WITH RATIO S cholesterol, total 183 mg/dL <200 normal Not Available [facility] [address] [address] [place], [address], 07/27/2022 18:03:17 0507/27/2022 LIPID PANEL WITH RATIO S HDL cholesterol 45 mg/dL > or = 40 normal Not Available [facility] [address] [place], [address], 07/27/2022 18:03:17 07/27/1907/27/2022 LIPID PANEL WITH RATIO S triglyceride s 129 mg/dL <150 normal Not Available [facility] [address] [place], [address], 07/27/2022 18:03:17 07/27/1907/27/2022 LIPID PANEL WITH RATIO S LDL-choleste rol 114 mg/dL _(annemarie c) high Refer ence range : <100 Shamar able range <100 mg/dL for prima ry preve ntion ; <70 mg/dL for patie nts with CHD or diabe tic patie nts with > or = 2 CHD risk facto rs. LDL-C is now calcu lated using the Yue garcia-Hop kins calcu amos n, which is a valid ated novel rodrigoo d latasha verdugo lion r accur acy than the Fried sigrid equat ion in the estim ation of LDL-C . Yue garcia SS et al. RIAN. 2013; 310(1 9): 2061- 2068 (http ://ed ucati on.Qu Josi Knotice. [employer]/f aq/FA Q164) Not Available [facility] [address] [address] [place], [address], 07/27/2022 18:03:17 07/27/1907/27/2022 LIPID PANEL WITH RATIO S chol/HDLC ratio 4.1 (calc ) <5.0 normal Not Available [facility] [address] [place], [address], 07/27/2022 18:03:17 07/27/1907/27/2022 LIPID PANEL WITH RATIO S LDL/HDL ratio 2.5 (calc ) Below Mcdonough ge Risk: <2.28 Mcdonough ge Risk: 2.29- 4.90 Moder ate Risk: 4.91- 7.12 High Risk: >7.13 Not Available [facility] [address] [address] [place], [address], 07/27/2022 18:03:17 07/27/1907/27/2022 LIPID PANEL WITH RATIO S non HDL cholesterol 138 mg/dL _(annemarie c) <130 high For patie nts with diabe rita plus 1 major ASCVD risk facto r, treat ing to a non-H DL-C goal of <100 mg/dL (LDL- C of <70 mg/dL ) is consi dered a thera peuti c optio n. Not Available [facility] [address] [address] [place], [address], 07/27/2022 18:03:17 07/27/1907/27/2022 COMPR EHENS MADELAINE METAB OLIC PANEL glucose 76 mg/dL 65-99 normal Fasti ng refer ence inter elinor Not Available [facility] [address] [address] [address], [place], [address], 07/27/2022 18:03:18 07/27/19 23 07/27/2022 COMPR EHENS MADELAINE METAB OLIC PANEL urea nitrogen (BUN) 15 mg/dL 7-25 normal Not Available [facility] [address] [address] [place], [address], 07/27/2022 18:03:18 07/27/19 23 07/27/2022 COMPR EHENS MADELAINE METAB OLIC PANEL creatinine 0.97 mg/dL 0.60-1 .24 normal Not Available [facility] [address] [address] [place], [address], 07/27/2022 18:03:18 07/27/1907/27/2022 COMPR EHENS MADELAINE METAB OLIC PANEL eGFR 108 mL/mi n/1.7 3m2 > or = 60 normal The eGFR is based on the CKD-E PI 2020 equat ion. To calcu late the new eGFR from a previ ous Creat inine or Cysta jana C resul t, go to https ://ryan [email or web address].[email or web address] [email or web address] fair/cony ofess ional s/ kdoqi /gfr% 5Fcal culat or Not Available [address], [address], 07/27/2022 18:03:18 07/27/19 23 07/27/2022 COMPR EHENS MADELAINE METAB OLIC PANEL BUN/creatini ne ratio NOT APPLIC ABLE (calc ) 6-22 Not Available [address], [address], 07/27/2022 18:03:18 07/27/19 23 07/27/2022 COMPR EHENS MADELAINE METAB OLIC PANEL sodium 140 mmol/ L 135-14 6 normal Not Available [address], [address], 07/27/2022 18:03:18 07/27/19 23 07/27/2022 COMPR EHENS MADELAINE METAB OLIC PANEL potassium 3.9 mmol/ L 3.5-5. 3 normal Not Available [address], [address], 07/27/2022 18:03:18 07/27/19 23 07/27/2022 COMPR EHENS MADELAINE METAB OLIC PANEL chloride 103 mmol/ L 98-110 normal Not Available [address], [address], 07/27/2022 18:03:18 07/27/19 23 07/27/2022 COMPR EHENS MADELAINE METAB OLIC PANEL carbon dioxide 31 mmol/ L 20-32 normal Not Available [address], [address], 07/27/2022 18:03:18 07/27/19 23 07/27/2022 COMPR EHENS MADELAINE METAB OLIC PANEL calcium 9.6 mg/dL 8.6-10 .3 normal Not Available [address] [place], [address], 07/27/2022 18:03:18 07/27/19 23 07/27/2022 COMPR EHENS MADELAINE METAB OLIC PANEL protein, total 7.3 g/dL 6.1-8. 1 normal Not Available [address], [address], 07/27/2022 18:03:18 07/27/19 23 07/27/2022 COMPR EHENS MADELAINE METAB OLIC PANEL albumin 4.7 g/dL 3.6-5. 1 normal Not Available [address], [address], 07/27/2022 18:03:18 07/27/1907/27/2022 COMPR EHENS MADELAINE METAB OLIC PANEL globulin 2.6 g/dL_ (calc ) 1.9-3. 7 normal Not Available [address], [address], 07/27/2022 18:03:18 07/27/19 23 07/27/2022 COMPR EHENS MADELAINE METAB OLIC PANEL albumin/glob ulin ratio 1.8 (calc ) 1.0-2. 5 normal Not Available [address], [address], 07/27/2022 18:03:18 07/27/19 23 07/27/2022 COMPR EHENS MADELAINE METAB OLIC PANEL bilirubin, total 0.6 mg/dL 0.2-1. 2 normal Not Available [address], [address], 07/27/2022 18:03:18 07/27/19 23 07/27/2022 COMPR EHENS MADELAINE METAB OLIC PANEL alkaline phosphatase 69 U/L 36-130 normal Not Available [address], [address], 07/27/2022 18:03:18 07/27/19 23 07/27/2022 COMPR EHENS MADELAINE METAB OLIC PANEL AST 16 U/L 10-40 normal Not Available [address] [address] [place], [address], 07/27/2022 18:03:18 07/27/19 23 07/27/2022 COMPR EHENS MADELAINE METAB OLIC PANEL ALT 21 U/L 9-46 normal Not Available [facility] [address] [address] [place], [address], 07/27/2022 18:03:18 07/27/19 23 07/27/2022 HEMOG LOBIN A1C hemoglobin A1C 5.3 %_of_ total _HGB <5.7 normal For the purpo se of cristian willson for the prese nce of diabe rita: <5.7% Consi stent with the absen ce of diabe rita 5.7-6 .4% Consi stent with incre ased risk for diabe rita (pred iabet es) > or =6.5% Consi stent with diabe rita This assay resul t is consi stent with a decre ased risk of diabe rita. Curre ntly, no conse nsus exist rodrick verdugo use of hemog lobin A1c for [...] Care in Diabe rita(A DA). Not Available [facility] [address] [address] [place], [address], 07/27/2022 18:03:18 07/27/19 23 07/27/2022 CBC (INCL UDES DIFF/ PLT) white blood cell count 5.0 thous and/u L 3.8-10 .8 normal Not Available [facility] - [address], [address], 07/27/2022 18:03:19 07/27/1907/27/2022 CBC (INCL UDES DIFF/ PLT) red blood cell count 4.88 keysha on/uL 4.20-5 .80 normal Not Available [facility] [address], [address], 07/27/2022 18:03:19 07/27/1907/27/2022 CBC (INCL UDES DIFF/ PLT) hemoglobin 13.9 g/dL 13.2-1 7.1 normal Not Available [facility] [address], [address], 07/27/2022 18:03:19 07/27/1907/27/2022 CBC (INCL UDES DIFF/ PLT) hematocrit 41.1 % 38.5-5 0.0 normal Not Available [facility] [address], [address], 07/27/2022 18:03:19 07/27/1907/27/2022 CBC (INCL UDES DIFF/ PLT) MCV 84.2 fL 80.0-1 00.0 normal Not Available [facility] [address], [address], 07/27/2022 18:03:19 07/27/1907/27/2022 CBC (INCL UDES DIFF/ PLT) MCH 28.5 pg 27.0-3 3.0 normal Not Available [facility] [address], [address], 07/27/2022 18:03:19 07/27/1907/27/2022 CBC (INCL UDES DIFF/ PLT) MCHC 33.8 g/dL 32.0-3 6.0 normal Not Available [facility] [address], [address], 07/27/2022 18:03:19 07/27/1907/27/2022 CBC (INCL UDES DIFF/ PLT) RDW 13.4 % 11.0-1 5.0 normal Not Available [address], [address], 07/27/2022 18:03:19 07/27/19 23 07/27/2022 CBC (INCL UDES DIFF/ PLT) platelet count 225 thous and/u L 140-40 0 normal Not Available [address], [address], 07/27/2022 18:03:19 07/27/1907/27/2022 CBC (INCL UDES DIFF/ PLT) MPV 10.9 fL 7.5-12 .5 normal Not Available [address], [address], 07/27/2022 18:03:19 07/27/1907/27/2022 CBC (INCL UDES DIFF/ PLT) absolute neutrophils 1905 cells /uL 1500-7 800 normal Not Available [address], [address], 07/27/2022 18:03:19 07/27/1907/27/2022 CBC (INCL UDES DIFF/ PLT) absolute lymphocytes 2555 cells /uL 850-39 00 normal Not Available [address], [address], 07/27/2022 18:03:19 07/27/1907/27/2022 CBC (INCL UDES DIFF/ PLT) absolute monocytes 400 cells /uL 200-95 0 normal Not Available [address], [address], 07/27/2022 18:03:19 07/27/1907/27/2022 CBC (INCL UDES DIFF/ PLT) absolute eosinophils 90 cells /uL 15-500 normal Not Available [address], [place], [address], 07/27/2022 18:03:19 07/27/19 23 07/27/2022 CBC (INCL UDES DIFF/ PLT) absolute basophils 50 cells /uL 0-200 normal Not Available [facility] - [address], [address], 07/27/2022 18:03:19 07/27/19 23 07/27/2022 CBC (INCL UDES DIFF/ PLT) neutrophils 38.1 % normal Not Available [facility] - [address], [address], 07/27/2022 18:03:19 07/27/19 23 07/27/2022 CBC (INCL UDES DIFF/ PLT) lymphocytes 51.1 % normal Not Available [facility] [address], [address], 07/27/2022 18:03:19 07/27/19 23 07/27/2022 CBC (INCL UDES DIFF/ PLT) monocytes 8.0 % normal Not Available [facility] [address], [address], 07/27/2022 18:03:19 07/27/19 23 07/27/2022 CBC (INCL UDES DIFF/ PLT) eosinophils 1.8 % normal Not Available [facility] [address], [address], 07/27/2022 18:03:19 07/27/19 23 07/27/2022 CBC (INCL UDES DIFF/ PLT) basophils 1.0 % normal Not Available [facility] [address], [address], 07/27/2022 18:03:19 07/27/1907/27/2022 URINA LYSIS , COMPL ETE W/REF CHING TO CULTU RE color YELLOW yellow normal Not Available [facility] [address], [address], 07/27/2022 18:03:20 07/27/19 23 07/27/2022 URINA LYSIS , COMPL ETE W/REF CHING TO CULTU RE appearance CLEAR clear normal Not Available [address], [address], 07/27/2022 18:03:20 07/27/19 23 07/27/2022 URINA LYSIS , COMPL ETE W/REF CHING TO CULTU RE specific gravity 1.019 1.001- 1.035 normal Not Available [address], [address], 07/27/2022 18:03:20 07/27/19 23 07/27/2022 URINA LYSIS , COMPL ETE W/REF CHING TO CULTU RE pH 6.5 5.0-8. 0 normal Not Available [address], [address], 07/27/2022 18:03:20 07/27/19 23 07/27/2022 URINA LYSIS , COMPL ETE W/REF CHING TO CULTU RE glucose NEGATI VE negati ve normal Not Available [address], [address], 07/27/2022 18:03:20 07/27/19 23 07/27/2022 URINA LYSIS , COMPL ETE W/REF CHING TO CULTU RE bilirubin NEGATI VE negati ve normal Not Available [address], [address], 07/27/2022 18:03:20 07/27/19 23 07/27/2022 URINA LYSIS , COMPL ETE W/REF CHING TO CULTU RE ketones NEGATI VE negati ve normal Not Available [facility] [address], [address], 07/27/2022 18:03:20 07/27/19 23 07/27/2022 URINA LYSIS , COMPL ETE W/REF CHING TO CULTU RE occult blood NEGATI VE negati ve normal Not Available [address], [address], 07/27/2022 18:03:20 07/27/19 23 07/27/2022 URINA LYSIS , COMPL ETE W/REF CHING TO CULTU RE protein NEGATI VE negati ve normal Not Available [address], [address], 07/27/2022 18:03:20 07/27/19 23 07/27/2022 URINA LYSIS , COMPL ETE W/REF CHING TO CULTU RE nitrite NEGATI VE negati ve normal Not Available [address], [address], 07/27/2022 18:03:20 07/27/19 23 07/27/2022 URINA LYSIS , COMPL ETE W/REF CHING TO CULTU RE leukocyte esterase NEGATI VE negati ve normal Not Available [address], [address], 07/27/2022 18:03:20 07/27/19 23 07/27/2022 URINA LYSIS , COMPL ETE W/REF CHING TO CULTU RE WBC NONE SEEN /hpf < or = 5 normal Not Available [address], [address], 07/27/2022 18:03:20 07/27/19 23 07/27/2022 URINA LYSIS , COMPL ETE W/REF CHING TO CULTU RE RBC NONE SEEN /hpf < or = 2 normal Not Available [address], [address], 07/27/2022 18:03:20 07/27/19 23 07/27/2022 URINA LYSIS , COMPL ETE W/REF CHING TO CULTU RE squamous epithelial cells NONE SEEN /hpf < or = 5 normal Not Available [address] [address] [place], [address], 07/27/2022 18:03:20 07/27/19 23 07/27/2022 URINA LYSIS , COMPL ETE W/REF CHING TO CULTU RE bacteria MANY /hpf none seen abnormal Not Available [address] [address] [place], [address], 07/27/2022 18:03:20 07/27/19 23 07/27/2022 URINA LYSIS , COMPL ETE W/REF CHING TO CULTU RE hyaline cast NONE SEEN /lpf none seen normal Not Available [address], [address], 07/27/2022 18:03:20 07/27/19 23 07/27/2022 REFLE XIVE URINE CULTU RE reflexive urine culture NO CULTU RE INDIC ATED Not Available [address], [address], 07/27/2022 18:03:20 05/01/19 24 05/01/2023 tread mill nucle ar stres s test (PROC ) No observ ation record ed. Not Available 05/21 11:21:55 Result Notes None recorded. 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 [employer] 3 13:04:53 Problem Notes None recorded. Procedures Surgical History Date Name Laterality Status Provider Name and Address Organization Details Recorded Time ENT Surgery completed Not Available [facility] 05/21/2022 19:28:18 Imaging Results None recorded. Procedure Notes None recorded. Medical Equipment None Reported. Allergies No known drug allergies Medications Name Sig Start Date Stop Date Status Note LastModified by Organization Details LastModified Time amoxicillin 500 mg capsule 08/12 completed Not Available Not Available Not Available azithromyci n 250 mg tablet TAKE 2 TABLETS BY MOUTH TODAY, THEN TAKE 1 TABLET DAILY FOR 4 DAYS 01/16 completed Not Available Not Available Not Available benzonatate 200 mg capsule Take 1 capsule 3 times a day by oral route. 01/16 completed Not Available Not Available Not Available hydrocodone 5 mg-acetamin ophen 325 mg tablet 01/20 completed Not Available Not Available Not Available Medrol (Walter) 4 mg tablets in a dose pack take as directed 01/16 completed Not Available Not Available Not Available prednisone 20 mg tablet 3 tabs po x 2 d, 2 tabs po x 2 days, 1 tab po x 2 days, 1/2 tab po x 2 days. active Not Available Not Available No t Available cephalexin 500 mg capsule 01/20 completed Not Available Not Available Not Available amoxicillin 875 mg-potassiu m clavulanate 125 mg tablet Take 1 tablet every 12 hours by oral route. 01/20 completed Not Available Not Available Not Available Flax Seed Oil 1,000 mg capsule Take 1 capsule every day by oral route. 2019 active Not Available Not Available Not Avai lable Ciprodex 0.3 %-0.1 % ear drops,suspe nsion active Not Available Not Available Not Available Fluzone Quad (PF) 60 mcg (15 mcg x 4)/0.5 mL IM syringe TO BE ADMINISTE RED BY PHARMACIS T FOR IMMUNIZAT ION 01/20 completed Not Available Not Available Not Available Fluzone Quad (PF) 60 mcg (15 mcg x 4)/0.5 mL IM syringe active Not Available Not Available N ot Available Vitals Date Recorded Body mass index (BMI) Body height Oxygen saturation Oxygen saturation in Arterial blood by Pulse oximetry Heart rate Respiratory rate Body temperature Body weight Systolic And Diastolic Provider Name and Address Organization Details Last Updated DateTime 2 22.1 kg/m2 187.96 cm 98 % 98 % 75 /min 16 /min 97.1 [degF] 38225.8 9 g 120/80 mm[Hg] Not Available [facility] 3 19:28:31 Date Recorded Body temperature Body weight Body mass index (BMI) Body height Heart rate Oxygen saturation Oxygen saturation in Arterial blood by Pulse oximetry Systolic And Diastolic Provider Name and Address Organization Details Last Updated DateTime 3 97.8 [degF] 52693.3 7 g 24.1 kg/m2 187.96 cm 68 /min 99 % 99 % 116/72 mm[Hg] Sanjuanita Helms RN [facility] [employer] [facility] 3 16:32:50 Date Recorded Body mass index (BMI) Body height Oxygen saturation Oxygen saturation in Arterial blood by Pulse oximetry Heart rate Body temperature Body weight Systolic And Diastolic Provider Name and Address Organization Details Last Updated DateTime 1 21.9 kg/m2 187.96 cm 98 % 98 % 85 /min 98.1 [degF] 86847.8 6 g 120/80 mm[Hg] Not Available [facility] 3 19:28:31 Social History Question Answer Notes LastModified by [employer] ion Details LastModified Time Tobacco Smoking Status Never Smoker Sanjuanita Helms RN [facility], [facility] [employer] 01/19/2023 16:29:41 Do You Have An Advance Directive? Yes [id number] Information not available 05/21/2022 Do You Wear A Helmet When Biking? No [email or web address] Information not available 01/19/2023 What Is Your Level Of Caffeine Consumption? Moderate [id number] Information not available 05/21/2022 In The 14 Days Before Symptom Onset, Have You Had Close Contact With A Laboratory-confirm ed COVID-19 While That Case Was Ill? No [email or web address] Information n ot available 01/19/2023 In The 14 Days Before Symptom Onset, Have You Had Close Contact With A Person Who Is Under Investigation For COVID-19 While That Person Was Ill? No [email or web address] Information not available 01/19/2023 What Type Of Diet Are You Following? REGULAR [id number] Information not available 05/21/2022 What Is The Highest Grade Or Level Of School You Have Completed Or The Highest Degree You Have Received? [id number] Information not available 01/19/2023 Have There Been Any Changes To Your Family Or Social Situation? No [email or web address] Information no t available 01/19/2023 Are There Any Guns Present In Your Home? No [email or web address] Information not available 01/19/2023 Do You Use Insect Repellent Routinely? Yes [email or web address] Information not available 01/19/2023 Do You Use Your Seat Belt Or Car Seat Routinely? Yes Information not available 01/19/2023 Do You Have Smoke And Carbon Monoxide Detectors In Your Home? Yes [email or web address] Information not available 01/19/2023 Are You Passively Exposed To Smoke? No [email or web address] Information no t available 01/19/2023 Are There Any Smokers In Your House? No [email or web address] Information not available 01/19/2023 Do You Use Sunscreen Routinely? Yes [email or web address] Information not available 01/19/2023 Has Tobacco Cessation Counseling Been Provided? No [email or web address] Information not available 01/19/2023 Have You Recently Traveled Abroad? No Information not available 01/19/2023 Do You Have Any Dietary Restrictions? No [email or web address] Information not available 01/19/2023 Sex: Unknown Functional Status Question Answer Note LastModified by [employer] ion Details LastModified Time Do you use any illicit or recreational drugs? No [email or web address] Information not available 01/19/2023 Do you or have you ever used any other forms of tobacco or nicotine? No [email or web address] Information not available 01/19/2023 What is your level of alcohol consumption? 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 Moderate [id number] Information not available 05/21/2022 Mental Status Question Answer Note LastModified by Organization D etails LastModified Time Do you feel stressed (tense, restless, nervous, or anxious, or unable to sleep at night)? [id number] [email or web address] Information not available 01/19/2023 Family History Relationship Description Onset Age of this Age Resolved Age Notes LastModified by Organization Details LastModified Time Mother Arthritis [id number] Not available 05/21/2022 19:28:18 Medical History Condition Response ENT Y Immunizations Vaccine Type Date Status Note Provider Nam e and Address Organization Details Recorded Time Influenza, MDCK, quadrivalent, PF 9 completed Not Available [facility] 05/21/2022 19:29:31 Influenza, split virus, quadrivalent, preservative 0 completed Not Available [facility] 05/21/2022 19:29:31 Influenza, split virus, quadrivalent, preservative 8 completed Not Available [facility] 05/21/2022 19:29:31 influenza, unspecified formulation 3 completed YONAS Thomas, [place] - [facility] 12/08/2022 16:10:46 Past Encounters Encounter ID Performer Location Encounter Start Date Encounter Closed Date Diagnosis/Indication Diagnosis SNOMED-CT Code Diagnosis ICD10 Code Diagnosis IMO Codes Diagnosis Note [id number] GARCÍA Early [facility] [place] [address] [place] [address] 01/21/2021 00:00:00 02/10/2021 19:47:[id number] [facility] [place] [address] [place] [address] 01/09/2022 00:00:00 01/18/2022 17:58:[id number] [facility] [place] [address] [place] [address] 01/19/2023 16:29:20 01/19/2023 16:52:37 Adult health examination [id number] Z00.00 well exam completed. all labs are UTD from July 2022 and stable. Health Concerns Section Related Observation LastModified by Organization Detai ls LastModified Time None Recorded Concern Status LastModified by Organization Details LastModified Time None Recorded Advance Directives Directive Y: Payers Insurance Date Sequence Insurance Name Policy Number Policy Torres Covered Member ID Torres Member ID Guarantor Name 05/25/2023 1 [facility] [id number] Mani Shankar [id number] Mani Shankar 05/25/2023 [facility] Mani Shankar SELF SELF Mani Shankar Notes Date Note Type Note Provider Name and Address Organization Details Recorded Time 01/19/2023 text/html Generic HPI TemplateReported by Patient wellnessno chronic problems, no medication GARCÍA Early [address] [facility], [facility] [address], [place], [address], [place] [facility] [employer] 01/19/2023 18:26:48
== END 2024-12-27 01:10 | disposition left against medical advice (07) ==
LOC: ANHED 12-27 01:07
PROVIDERS: Emergency Provider Emergency Medicine; PCP Physician Assistant
DX: R07.9 Chest pain, unspecified (principal)
CPT/HCPCS: 36415; 71046; 80053; 83690; 84484; 85025; 85610; 85730; 93005; 99199